=== PATIENT | male | born 1990 | race Caucasian/White ===

== ENCOUNTER 2021-07-09 01:47 | Emergency (ER) | payer OTHER ==
[~2021-07-09] VITALS: Ht 172.7 cm; Wt 63.5 kg
[2021-07-09 01:52] VITALS: BP 114/61
== END 2021-07-09 01:58 | disposition home or self-care (01) ==
LOC: ER 01:47
PROVIDERS: Student in an Organized Health Care Education/Training Program
DX: Z20.822 Contact with and (suspected) exposure to COVID-19 (principal)